=== PATIENT | male | born 1935 | race Caucasian/White ===

== ENCOUNTER 2016-11-25 19:49 | Emergency (ER) | payer MEDICARE ==
[~2016-11-25 19:49] MED LIST: ADULT LOW DOSE81 M1 PO; ADULT LOW DOSE81 MG PO; ALLOPURINOL100 M1 PO; ALLOPURINOL100 MG; ALLOPURINOL100 MG PO; ASPIR 8181 MG; ATENOLOL25 MG; ATENOLOL25 MG PO; BABY ASPIRIN81 MG; CALCIUM CARBON600 MG PO; CALCIUM600 M1 PO; CALCIUM600 MG; COUMADIN1 MG; COUMADIN3 M1 PO; COUMADIN3 MG; COUMADIN3 MG PO; COUMADIN4 M1 PO; GLUCOSAMINE CH1 EA13 PO; GLUCOSAMINE SU750 M1 PO; GLUCOSAMINE750 MG; H PO; IRON325 ( 65 PO; IRON325 M3 PO; JOINT SUPPORT PO; JOINT SUPPORT1 EACH PO; KEFLEX500 M4 PO; LEVOTHROID112 MCG PO; LEVOTHYROXINE PO; MULTIVITAM1 TAB.CHEW; MULTIVITAMIN1 CAP; MULTIVITAMIN1 TAB PO; MULTIVITAMINS1 EAC6 PO; NORCO 5/325 TAB1 TAB PO; PAIN RELIEF500 M4 PO; POTASSIUM595 ( 99 ) PO; POTASSIUM99 M4 PO; PREDNISONE20 MG PO; SIMVASTATIN10 M1 PO; SLOW NIACIN; TYLENOL325 MG PO; WARFARIN SODIUM3 M2 PO; ZOCOR10 MG; ZOCOR10 MG PO; [UNRECOGNIZED DRUG - OTHER]; [UNRECOGNIZED DRUG - OTHER]; [UNRECOGNIZED DRUG - OTHER]
[2016-11-25] MEDS ORDERED: JOINT SUPPORT1 EACH (20:07)
[2016-11-25] MEDS ORDERED: COUMADIN3 M1 PO (20:08)
[2016-11-25] MEDS ORDERED: COUMADIN4 M1 PO (20:08)
== END 2016-11-25 21:48 ==
LOC: EDMED 19:49
DX: S91.202A Unspecified open wound of left great toe with damage to nail, initial encounter (principal); I48.91 Unspecified atrial fibrillation; I25.2 Old myocardial infarction; W23.1XXA Caught, crushed, jammed, or pinched between stationary objects, initial encounter; Y92.019 Unspecified place in single-family (private) house as the place of occurrence of the external cause; Z85.828 Personal history of other malignant neoplasm of skin; Z87.891 Personal history of nicotine dependence; Z79.01 Long term (current) use of anticoagulants; Z79.899 Other long term (current) drug therapy